=== PATIENT | male | born 1985 | race African-American/Black ===

== ENCOUNTER 2019-12-09 15:07 | Emergency (ER) | payer OTHER ==
[~2019-12-09] VITALS: Ht 177.8 cm; Wt 74.8 kg
[2019-12-09] MEDS ORDERED: AUGMENTIN 875-1 EACH PO (17:16)
[2019-12-09 17:45] VITALS: BP 119/74
== END 2019-12-09 17:45 | disposition home or self-care (01) ==
LOC: ER 15:07
DX: S61.451A Open bite of right hand, initial encounter (principal); W54.0XXA Bitten by dog, initial encounter; Y93.89 Activity, other specified; Y92.89 Other specified places as the place of occurrence of the external cause; Y99.8 Other external cause status